=== PATIENT | male | born 1990 | race Caucasian/White ===

== ENCOUNTER 2017-10-26 21:49 | Emergency (ER) | payer SELFPAY ==
[~2017-10-26] VITALS: Ht 172.7 cm; Wt 115.7 kg
[~2017-10-26 21:49] MED LIST: AMOXIL500 MG PO; PERCOCET 325 MG1 TA2 PO
[2017-10-27] MEDS ORDERED: NORCO 5-325 TA1 EACH PO (00:23)
[2017-10-27] MEDS ORDERED: IBUPROFEN800 M1 PO (00:23)
[2017-10-27] MEDS ORDERED: AUGMENTIN 875-1 EACH PO (00:23)
--- NOTE | 2017-10-27 00:24 | ED THROAT/DENTAL COMPLAINT ---
History of Present Illness General Chief Complaint: General Adult Stated Complaint: PT HAS A ABSCESS ON THE RT OF HIS FACE Source: patient Exam Limitations: no limitations Vital Signs & Intake/Output Vital Signs & Intake/Output Vital Signs Date Time Temp Pulse Resp B/P B/P Pulse O2 O2 Flow FiO2 Mean Ox Delivery Rate 10/27 0028 98.5 90 16 128/80 96 Room Air 10/26 2201 96.4 97 18 138/88 97 Room Air ED Intake and Output 10/27 0000 10/26 1200 Intake Total Output Total Balance Patient 255 lb Weight Weight Reported by Patient Measurement Method Allergies Coded Allergies: NO KNOWN ALLERGIES (09/12/14) Reconcile Medications Amoxicillin (Amoxil) 500 MG CAP 1 TAB PO TID INFECTION Amoxicillin/Potassium Clav (Augmentin 875-125 Tablet) 875 MG-125 MG TABLET 1 TAB PO BID PRN DENTAL INFECTION Hydrocodone/Acetaminophen (Vernon 5-325 Tablet) 5 MG-325 MG TABLET 1 TAB PO Q4- 6 PRN PRN SEVERE PAIN Ibuprofen 800 MG TABLET 1 TAB PO TID PRN PAIN OXYCODONE HCL/ACETAMINOPHEN (Percocet 5-325 MG Tablet) 325 MG/5 MG TAB 1 TAB PO Q4-6 PRN PRN PAIN Triage Note: PT TO ER C/C SORE THROAT, ENLARGED LYMPH NODE, AND SEVERE PAIN X 1 DAY. AFEBRILE. Triage Nurses Notes Reviewed? yes Onset: Abrupt Duration: day(s): (1), constant, continues in ED, getting worse Timing: single episode today Injury Environment: home Severity: moderate, severe Severity Numbers: 8 No Modifying Factors: none HPI: 26-year-old male with no past medical history presents for evaluation of pain and swelling in the area of his right lower jaw. Patient reports that he noticed pain in his right lower molars over the past several days but the pain was mild. He states that the pain suddenly became more severe and associated with right submandibular swelling earlier today. The pain is worse with touching the area movement of the jaw. He is able to tolerate secretions swallow, and is not having any breathing problems. No fevers. He states that he took Tylenol earlier today without any improvement. He does report that he is able to drink fluids. He has not seen a dentist in years. (Shayan Ha) Past History Travel History Traveled to [place] past 21 day No Medical History Any Pertinent Medical History? see below for history Surgical History Surgical History: non-contributory Psychosocial History What is your primary language Uzbek Tobacco Use: Current Daily Use Daily Tobacco Use Amount/Type: => 5 Cigarettes daily Family History Hx Contributory? No (Shayan Ha) Review of Systems Review of Systems Constitutional: Reports: no symptoms. EENTM: Reports: throat pain, mouth pain, tooth pain. Respiratory: Reports: no symptoms. Cardiovascular: Reports: no symptoms. GI: Reports: no symptoms. Genitourinary: Reports: no symptoms. Musculoskeletal: Reports: no symptoms. Skin: Reports: no symptoms. Neurological/Psychological: Reports: no symptoms. Hematologic/Endocrine: Reports: no symptoms. Immunologic/Allergic: Reports: no symptoms. All Other Systems: Reviewed and Negative (Shayan Ha) Physical Exam Physical Exam General Appearance: well developed/nourished, no apparent distress, alert, awake Head: atraumatic, normal appearance Eyes: Bilateral: normal appearance, PERRL, EOMI. Ears: Bilateral: canal normal, Tympanic normal. Nose: normal inspection Mouth/Throat: pharynx normal, dental tenderness, poor dentition overall. there are multiple missing and rotting teeth. there is a cracked molar in the rt lower jaw that is tender to palpation. no focal fluctuant areas or discharge. no trismus. pt is haldeling secretions. tonsils are 1+ bilaterlaly without erythema or dischrage. there is rt sided submandibular lymphadenopathy present. no erythema. Neck: normal inspection, supple, full range of motion, lymphadenopathy (R) Cardiovascular/Respiratory: normal breath sounds, normal peripheral pulses, regular rate/rhythm, no respiratory distress Back: normal inspection, normal range of motion Neurologic/Psych: no motor/sensory deficits, awake, alert, oriented x 3, normal gait Skin: intact, normal color, warm/dry Core Measures ACS in differential dx? No Sepsis Present: No Sepsis Focused Exam Completed? No (Shayan Ha) Progress Differential Diagnosis: carious tooth, Ludwigs angina, odontogenic abscess, tomás -tonsillar abscess, stomatitis/gingivitis, strep pharyngitis, tooth fracture Plan of Care: Current Medications Sig/Christopher Start time Last Medication Dose Stop Time Status Admin Ketorolac 60 MG ONCE ONE 10/27 0030 AC 10/27 Tromethamine 10/27 0031 0025 (Toradol) Patient seen and evaluated. He has very poor dentition. He has a large cracked molar on the right side and right-sided submandibular lymphadenopathy. He is afebrile nontoxic appearing. There is no evidence of drainable abscess at this time. He is tolerating fluids. No trismus. Patient was treated with Augmentin and ibuprofen. Toradol administered now. Vernon for severe pain. Follow-up with dentist this week. He is given a list of local dental clinics. Discussed return precautions in detail including signs of abscess or infection. Patient is nontoxic-appearing and agrees the plan. (Shayan Ha) Departure Departure Disposition: HOME OR SELF CARE Condition: Stable Clinical Impression Primary Impression: Dental infection Referrals: Patient Has No Primary Care Dr (PCP/Family) Additional Instructions: Rest drink plenty fluids. Apply ice to the affected area for 15-20 minutes every few hours. Ibuprofen 800 mg every 8 hours as needed for pain. Vernon for severe pain only this may cause drowsiness. Take antibiotics as directed for the full course. Monitor symptoms closely. If you're unable tolerate fluids, worsening pain, worsening swelling, fevers or any other concerns return to the emergency department immediately. Need to follow up with the dentist within the next 1-2 days. Departure Forms: Customer Survey General Discharge Information Prescriptions: Current Visit Scripts Amoxicillin/Potassium Clav (Augmentin 875-125 Tablet) 1 TAB PO BID PRN DENTAL INFECTION #20 TAB Ibuprofen 1 TAB PO TID PRN PAIN #30 TAB Hydrocodone/Acetaminophen (Vernon 5-325 Tablet) 1 TAB PO Q4-6 PRN PRN SEVERE PAIN #6 TAB (Shayan Ha) PA/STRATIGRAPHY TEACHER Co-Sign Statement Statement: ED Attending supervision documentation- [] I saw and evaluated the patient. I have also reviewed all the pertinent lab results and diagnostic results. I agree with the findings and the plan of care as documented in the PA's/STRATIGRAPHY TEACHER's documentation. [x] I have reviewed the ED Record and agree with the PA's/STRATIGRAPHY TEACHER's documentation. [] Additions or exceptions (if any) to the PAs/STRATIGRAPHY TEACHER's note and plan are summarized below: [] (Efren RICE,Timmy Barry)
[2017-10-27 00:28] VITALS: BP 128/80
== END 2017-10-27 00:28 ==
LOC: ERH 21:49
DX: K04.7 Periapical abscess without sinus (principal)
CPT/HCPCS: 96372; J1885

== ENCOUNTER 2017-10-27 17:43 | Emergency (ER) | payer OTHER ==
[~2017-10-27] VITALS: Ht 172.7 cm; Wt 117.9 kg
[~2017-10-27 17:43] MED LIST changes: +AUGMENTIN 875-1 EACH PO; +IBUPROFEN800 M1 PO; +NORCO 5-325 TA1 EACH PO
[2017-10-27 21:44] LABS: ABSOLUTE BASOPHIL COUNT 0.1 /CUMM (0.0-0.2); ABSOLUTE EOSINOPHIL COUNT 0.1 /CUMM (0.0-0.7); ABSOLUTE GRANULOCYTE CT 11.6 /CUMM (1.4-6.5); ABSOLUTE LYMPH COUNT 2.2 /CUMM (1.2-3.4); ABSOLUTE MONOCYTE COUNT 1.5 /CUMM (0.10-0.60); BASOPHIL % 0.7 % (0.0-2.0); EOSINOPHIL % 0.6 % (0-5); GRANULOCYTE % 74.9 % (42.2-75.2); HEMATOCRIT 47.9 % (42-52); MEAN CORPUSCULAR HGB 30.2 PG (27.0-31.0); MEAN CORPUSCULAR HGB CONC 33.5 G/DL (33.0-37.0); MEAN PLATELET VOLUME 7.3 FL (7.4-10.4); PLATELET COUNT 300 /CUMM (130-400); RED BLOOD CELL CT 5.32 /CUMM (4.70-6.10); WHITE BLOOD CELL COUNT 15.4 /CUMM (4.8-10.8)
[2017-10-27 21:46] VITALS: BP 165/86
--- NOTE | 2017-10-27 21:57 | ED THROAT/DENTAL COMPLAINT ---
History of Present Illness General Chief Complaint: Skin Rash/ Abcess Stated Complaint: SEEN YESTERDAY FOR ?ABCESS ON R SIDE OF FACE Source: patient, old records Exam Limitations: no limitations Vital Signs & Intake/Output Vital Signs & Intake/Output Vital Signs Date Time Temp Pulse Resp B/P B/P Pulse O2 O2 Flow FiO2 Mean Ox Delivery Rate 10/27 2146 98.7 94 18 165/86 96 10/27 1757 97.7 63 18 137/90 98 Room Air Allergies Coded Allergies: NO KNOWN ALLERGIES (09/12/14) Reconcile Medications Amoxicillin (Amoxil) 500 MG CAP 1 TAB PO TID INFECTION Amoxicillin/Potassium Clav (Augmentin 875-125 Tablet) 875 MG-125 MG TABLET 1 TAB PO BID PRN DENTAL INFECTION Hydrocodone/Acetaminophen (Davin 5-325 Tablet) 5 MG-325 MG TABLET 1 TAB PO Q4- 6 PRN PRN SEVERE PAIN Ibuprofen 800 MG TABLET 1 TAB PO TID PRN PAIN OXYCODONE HCL/ACETAMINOPHEN (Percocet 5-325 MG Tablet) 325 MG/5 MG TAB 1 TAB PO Q4-6 PRN PRN PAIN Triage Note: 26 YO MALE TO TRIAGE FOR ABCESS, STATES HE WAS SEEN HERE YESTERDAY AND SENT HOME ON PAIN MEDICATION AND ANTIBIOTICS BUT STATES HE FEELS THE ABSCESS IS GETTING BIGGER. ABCESS TO [facility] [place]. Triage Nurses Notes Reviewed? yes Onset: Abrupt Duration: day(s): (5), constant, continues in ED, getting worse Timing: single episode today Injury Environment: home Severity: moderate, severe Severity Numbers: 9 No Modifying Factors: none HPI: 26 year old male with no past medical hx presents for re-eval ofdental pain. he was seen last night for pain and swelling in the rt submandibular area. there was no sign of drainable fluid collection. he was placed on augmentin and given pain medication. he reports that since then he feels the area has continued to get bigger and more painful. he states that it has been difrficult for him to swalow and he has not been eating much but tolertaing some fluids. no fever, droolling, sob chest pain abdominal pain or any other associated symptoms. He has not yet made an appointment with a dentist. He has been taking ibuprofen and Vicodin with minimal improvement. (Shayan Ha) Past History Travel History Traveled to [place] past 21 day No Medical History Any Pertinent Medical History? see below for history Neurological: NONE EENT: NONE Cardiovascular: NONE Respiratory: NONE Gastrointestinal: NONE Hepatic: NONE Renal: NONE Musculoskeletal: NONE Psychiatric: NONE Endocrine: NONE Blood Disorders: NONE Cancer(s): NONE VEHICLE MAINTENANCE TECHNICIAN/Reproductive: NONE Surgical History Surgical History: non-contributory Psychosocial History What is your primary language Greenlandic Tobacco Use: Never used Family History Hx Contributory? No (Shayan Ha) Review of Systems Review of Systems Constitutional: Reports: no symptoms. EENTM: Reports: throat pain, mouth pain, tooth pain. Respiratory: Reports: no symptoms. Cardiovascular: Reports: no symptoms. GI: Reports: no symptoms. Genitourinary: Reports: no symptoms. Musculoskeletal: Reports: no symptoms. Skin: Reports: no symptoms. Neurological/Psychological: Reports: no symptoms. Hematologic/Endocrine: Reports: no symptoms. Immunologic/Allergic: Reports: no symptoms. All Other Systems: Reviewed and Negative (Shayan Ha) Physical Exam Physical Exam General Appearance: well developed/nourished, no apparent distress, alert, awake Head: atraumatic, normal appearance Eyes: Bilateral: normal appearance, PERRL, EOMI. Ears: Bilateral: canal normal, Tympanic normal. Nose: normal inspection Mouth/Throat: very poor dentition overall. Multiple rotting cracked teeth. There is a cracked molar on the right lower jaw that is tender to palpation. No palpable abscess. There is submandibular adenopathy on the right side. No erythema or focal fluctuant areas. No trismus. Patient handling secretions. Tonsils 1+ bilaterally with no erythema or exudate. No visible or palpable abscess Neck: normal inspection, supple, full range of motion, lymphadenopathy (R) Cardiovascular/Respiratory: normal breath sounds, normal peripheral pulses, regular rate/rhythm, no respiratory distress Back: normal inspection, normal range of motion Neurologic/Psych: no motor/sensory deficits, awake, alert, oriented x 3, normal gait, normal mood/affect Skin: intact, normal color, warm/dry Core Measures ACS in differential dx? No Sepsis Present: No Sepsis Focused Exam Completed? No (Shayan Ha) Progress Differential Diagnosis: carious tooth, epiglottitis, Ludwigs angina, odontogenic abscess, tomás-tonsillar abscess, stomatitis/gingivitis, strep pharyngitis, tooth fracture Plan of Care: Orders Procedure Date/time Status COMPREHENSIVE METABOLIC PANEL 10/27 2120 Complete CBC WITHOUT DIFFERENTIAL 10/27 2120 Complete Laboratory Tests 10/27/172136: Anion Gap 15, Estimated GFR > 60, BUN/Creatinine Ratio 12.5, Glucose 96, Calcium 9.8, Total Bilirubin 0.6, AST 20, ALT 36, Alkaline Phosphatase 90, Total Protein 7.9, Albumin 4.6, Globulin 3.3, Albumin/Globulin Ratio 1.4, CBC w Diff NO MAN DIFF REQ, RBC 5.32, MCV 90.0, MCH 30.2, RDW 13.0, MPV 7.3 L, Gran % 74.9, Lymphocytes % 14.1 L, Monocytes % 9.7 H, Eosinophils % 0.6, Basophils % 0.7, Absolute Granulocytes 11.6 H, Absolute Lymphocytes 2.2, Absolute Monocytes 1.5 H, Absolute Eosinophils 0.1, Absolute Basophils 0.1, PUBS MCHC 33.5 Patient seen and evaluated. The exam is similar to last night when I saw him. Still no evidence of visible or palpable abscess. Patient does report increasing pain swelling difficulty tolerating food and fluids due to pain and swelling. Patient was given 30 mg of IV Toradol with significant improvement. He was able tolerate by mouth here. He was also given IV fluids. CT scan did not show any fluid collections in the neck. Advised patient to continue Tylenol ibuprofen Vicodin for pain. Continue antibiotics for a full course. Told patient he needs to recheck to a dentist as soon as possible. He was mouthwash in brush teeth daily. Discussed return precautions in detail patient is nontoxic-appearing and agrees the plan. Diagnostic Imaging: Viewed by Me: CT Scan. Discussed w/RAD: CT Scan. Radiology Impression: PATIENT: MEE CERVANTES PRESENT AGE: 26 PATIENT ACCOUNT NO: [id number] : 91 LOCATION: [facility] ORDERING PHYSICIAN: Shayan BRAUN SERVICE DATE: 10/27/17-2120 EXAM TYPE: CAT - CT NECK W IV CONTRAST EXAMINATION: CT NECK WITH CONTRAST CLINICAL INFORMATION: Right-sided pain and swelling. COMPARISON: None TECHNIQUE: Contiguous helical images of the neck were obtained following the administration of IV contrast. Multiplanar reconstructions were performed. DLP: 446 mGy-cm FINDINGS: The vasculature of the neck is unremarkable. There are scattered nonpathologically enlarged lymph nodes bilaterally. Normal symmetric submandibular and parotid glands are identified bilaterally. The visualized base of the brain is unremarkable. There is mild mucosal thickening within the left maxillary sinus. The visualized paranasal sinuses and mastoid air cells are otherwise clear. The visualized lung apices are clear. The cervical vertebra are in normal alignment. Disc heights and vertebral body heights are well-preserved. IMPRESSION: Scattered nonpathologically enlarged cervical lymph nodes. No drainable fluid collections. DICTATED BY: Brice García MD DATE/TIME DICTATED:10/27/172253 SOLAR PV INSTALLER:REYNA DATE/TIME TRANSCRIBED:10/27/172253 CONFIDENTIAL, DO NOT COPY WITHOUT APPROPRIATE AUTHORIZATION. (Shayan Ha) Departure Departure Disposition: HOME OR SELF CARE Condition: Stable Clinical Impression Primary Impression: Dental infection Referrals: Patient Has No Primary Care Dr (PCP/Family) Additional Instructions: Continue antibiotics as directed. The full course. Continue ibuprofen 800 mg every 8 hours with food as needed for pain. Davin for severe pain only. Follow -up with a dentist as soon as possible. Rinse your mouth with mouthwash several times per day. Return to the emergency department with difficulty swallowing unable tolerate fluids fever or any other concerns. Departure Forms: Customer Survey General Discharge Information (Shayan Ha) PA/QUALITY INTERN Co-Sign Statement Statement: ED Attending supervision documentation- [] I saw and evaluated the patient. I have also reviewed all the pertinent lab results and diagnostic results. I agree with the findings and the plan of care as documented in the PA's/QUALITY INTERN's documentation. [X] I have reviewed the ED Record and agree with the PA's/QUALITY INTERN's documentation. [] Additions or exceptions (if any) to the PAs/QUALITY INTERN's note and plan are summarized below: [] (Tiana RICE,Jennifer)
--- NOTE | 2017-10-27 23:02 | CT SCAN REPORT ---
EXAMINATION: CT NECK WITH CONTRAST CLINICAL INFORMATION: Right-sided pain and swelling. COMPARISON: None TECHNIQUE: Contiguous helical images of the neck were obtained following the administration of IV contrast. Multiplanar reconstructions were performed. DLP: 446 mGy-cm FINDINGS: The vasculature of the neck is unremarkable. There are scattered nonpathologically enlarged lymph nodes bilaterally. Normal symmetric submandibular and parotid glands are identified bilaterally. The visualized base of the brain is unremarkable. There is mild mucosal thickening within the left maxillary sinus. The visualized paranasal sinuses and mastoid air cells are otherwise clear. The visualized lung apices are clear. The cervical vertebra are in normal alignment. Disc heights and vertebral body heights are well-preserved. IMPRESSION: Scattered nonpathologically enlarged cervical lymph nodes. No drainable fluid collections.
== END 2017-10-27 23:26 ==
LOC: ERH 17:43
PROVIDERS: Physician Assistant Medical
DX: K04.7 Periapical abscess without sinus (principal)
CPT/HCPCS: 96360; J1885